=== PATIENT | female | born 1995 | race Caucasian/White ===

== ENCOUNTER 2018-02-19 09:02 | Emergency (ER) | payer OTHER, SELFPAY ==
[2018-02-19 09:08] VITALS: BP 132/78; PULSE 96; RESP 18; TEMP 36.6; O2SAT 97
--- NOTE | 2018-02-19 09:59 | ED_ITS ---
HPI - Nausea/Vomiting/Diarrhea General Chief complaint: Urogenital-Female Stated complaint: VOMITING, FEVER, BACK PAIN Time Seen by Provider: 02/19/18 09:37 Source: patient Mode of arrival: ambulatory Limitations: no limitations History of Present Illness HPI Narrative: Patient states she does not think she is , but she does note that she has been off her control for 7 months, and has not had a period during that time. She is sexually active. MD complaint: nausea, vomiting and other (back pain) Onset (ago): day(s) (4) Description of Vomiting: other (stomach contents) Description of Diarrhea: none Associated Abdominal Pain: Yes Location of pain: left flank and right flank Radiation: does not radiate Severity: mild Quality: cramping and dull Pain Consistency: constant Relieving factors: none Exacerbating factors: none Context: other (Patient has a history of multiple UTIs in the past and states this feels similar.) Associated symptoms: denies other symptoms Related Data Home Medications Medication Instructions Recorded Confirmed Control 02/19/18 Allergies Allergy/AdvReac Type Severity Reaction Status Date / Time No Known Drug Allergies Allergy Verified 02/19/18 09:09 Review of Systems Review of Systems All systems reviewed & are unremarkable except as noted in HPI and below Constitutional Denies chills, Denies fever(s), Denies lethargy and Denies weakness Eyes Denies change in vision, Denies eye discharge, Denies irritation and Denies loss of vision ENT Ears, Nose, Mouth, and Throat: Denies change in voice, Denies neck pain and Denies sore throat Cardiovascular Denies chest pain, Denies irregular heart rhythm, Denies lightheadedness, Denies palpitations, Denies dyspnea, Denies dyspnea on exertion and Denies orthopnea Respiratory Denies cough, Denies dyspnea, Denies dyspnea on exertion and Denies wheezing Gastrointestinal Gastrointestinal: Reports abdominal pain (Bilateral flank), Denies change in bowel habits, Denies diarrhea, Reports nausea and Reports vomiting Genitourinary Denies hematuria, Denies flank pain, Denies urinary incontinence and Denies urinary urgency Musculoskeletal Denies neck pain Integumentary/Breasts Denies pruritus, Denies erythema, Denies rash and Denies wounds Neurologic Denies confusion, Denies loss of vision and Denies weakness Psychiatric Denies anxiety, Denies confusion, Denies depression, Denies homicidal ideation and Denies suicidal ideation Endocrine Denies palpitations Hematologic/Lymphatic Denies easy bruising Allergic/Immunologic Denies wheezing PFSH Social History Smoking Status: Never smoker Exam Initial Vital Signs Initial Vital Signs: Vital Signs Temperature 97.9 F 02/19/18 09:08 Pulse Rate 96 H 02/19/18 09:08 Respiratory Rate 18 02/19/18 09:08 Blood Pressure 132/78 H 02/19/18 09:08 Pulse Oximetry 97 02/19/18 09:08 Const General: cooperative and well developed Nutritional Appearance: well nourished Orientation: alert, awake, oriented x3 and not confused HENKS Head: normocephalic and atraumatic Ears: external ears normal and TM's normal bilaterally Nose: external nose normal and No nasal discharge Face and sinus: sinuses nontender, face symmetric, no sinus tenderness and No dry mucous membranes Mouth: oral mucosae normal and moist mucous membranes Teeth and gingiva: dentition normal Throat: tonsils normal and uvula midline Eyes General: appearance normal, both eyes and all related structures Eyelids: eyelids normal Conjunctivae: conjunctivae normal Sclera: sclerae normal Pupils: PERRL EOM: EOM intact bilaterally Neck Neck: normal visual inspection, trachea midline, No lymphadenopathy, No midline deformity and No JVD Lymphatic: No lymphedema Chest Chest: normal inspection of the chest Resp Effort & Inspection: normal respiratory effort, able to speak in complete sentences, no respiratory distress and no use of accessory muscles Auscultation: clear to auscultation bilaterally, no rales, no rhonchi and no wheezes Cardio Rate: regular rate Rhythm: regular rhythm Heart Sounds: no click, no gallops, no murmurs and no rubs Pulses: normal peripheral pulses GI Inspection: non-distended Palpation: soft, no hepatosplenomegaly, No guarding, No pulsatile mass and tender (Very mild tenderness in bilateral flanks. No rebound or guarding.) Auscultation: normal bowel sounds Back/Spine/Pelvis Back: No CVA tenderness Cervical Spine: cervical ROM normal and No pain with cervical ROM Thoracic/Lumbar Spine: thoracic and lumbar spine normal to inspection Skin General: no rashes or lesions noted, No jaundice and No petechiae Neuro General: alert, oriented x3, gait normal and no focal motor deficits Speech: speech normal Extrem General: full ROM, no clubbing, cyanosis or edema, no pedal edema and no calf tenderness Psych Appearance: well kempt Mental Status: mental status grossly normal Attitude: cooperative Thought Content: normal and suicidality Judgment: judgment good Course Hospital Course: Patient remained stable throughout her stay in the emergency department. She declined any symptomatic intervention. Orders Ordered: ED Orders 02/19/18 09:13 Urinalysis and Microscopic Stat Vital Signs - 8 hr 02/19/18 09:08 Temperature 97.9 F Pulse Rate 96 H Respiratory Rate 18 Blood Pressure 132/78 H Pulse Oximetry 97 MDM - Nausea/Vomiting/Diarrhea Differential Diagnosis Likely other (UTI, , viral syndrome) Medical Records Attestation: I reviewed the patient's medical records. Lab Data Attestation: I reviewed the patient's lab results. Urinalysis and test negative. Lab Results 02/19/18 Range/Units Unknown Urine Color Yellow Urine Appearance Clear Urine pH 6.5 (4.5-8.0) Ur Specific [place] <=1.005 (1.000-1.035) Urine Protein Negative (Negative) Urine Glucose (UA) Negative (Normal) g/dL Urine Ketones Negative (NEGATIVE) Urine Occult Blood 1+ H (Negative) Urine Nitrate Negative (Negative) Urine Bilirubin Negative (NEGATIVE) Urine Urobilinogen 0.2 (0.2) E.U./dL Ur Leukocyte Esterase Negative (NEGATIVE) Urine RBC 5-10/hpf H (0-5/HPF) Urine WBC None seen (0-5/HPF) Ur Squamous Epith Cells 5-10 /hpf H Urine Bacteria None seen (None) Ur Culture Indicated? Cult not indicated MDM Narrative Medical decision making narrative: Patient was worked up with a UA and urine test. Her abdominal exam was nonfocal and she was otherwise stable, and I did not feel further diagnostic testing or intervention was indicated. Patient declined to have any home medication prescribed for her nausea. We did discuss the usual indications for return. Discharge Plan Departure Patient Disposition: Home, Self-Care Clinical Impression: Vomiting, Acute viral syndrome Discharge Date/Time: 02/19/18 10:47 Interventions: ED Discharge Assessment Last Done: 02/19/18 10:46 Instructions: DI for Vomiting -- Adult Activity Restrictions/Additional Instructions: Urinalysis is negative for infection. Urine test is negative. You most likely have a viral illness which is causing your nausea, vomiting and abdominal discomfort. As such, this illness will be expected to go away on its own within the next several days. In the meantime, if you may take clear liquids, as tolerated. If you're able to tolerate clear liquids, then you may try simple starchy foods, such as saltines or Ramen noodles. From there, you may advance your diet as tolerated. Prescriptions: No Action Control RF: 0 Stand Alone Forms: Work/School Restrictions
[2018-02-19 10:00] LABS: Appearance Urine UA CLEAR; Bacteria Urine None Seen; Bilirubin Urine UA NEGATIVE (NEGATIVE); Color Urine UA YELLOW; Glucose Urine UA NEGATIVE (Normal); Ketones Urine UA NEGATIVE (NEGATIVE); Leukocyte Esterase Urine UA NEGATIVE (NEGATIVE); Nitrite Urine UA Negative (Negative); Occult Blood Urine UA 1+ (Negative); Protein Urine UA NEGATIVE (Negative); Specific Gravity Urine UA <=1.005 (1.000-1.035); Urobilinogen Urine UA 0.2 E.U./dL (0.2); WBC Urine None Seen (0-5/HPF); pH Urine UA 6.5 (4.5-8.0)
[2018-02-19 10:07] LABS: Culture Indicated Urine Cult Not Indicated; RBC Urine 5-10/HPF (0-5/HPF); Squamous Epithelial Cell Urine 5-10 /HPF
[2018-02-19 10:44] VITALS: BP 145/74; PULSE 92; RESP 14; O2SAT 95
[2018-02-19 10:46] VITALS: BP 145/74; PULSE 92; RESP 20
== END 2018-02-19 10:47 | disposition home or self-care (01) ==
PROVIDERS: Emergency Provider Emergency Medicine
DX: B34.9 Viral infection, unspecified (principal)
CPT/HCPCS: 81001; 81025; 99282